=== PATIENT | male | born 1975 | race Caucasian/White ===

== ENCOUNTER 2017-02-01 06:10 | Inpatient (IN) | payer BC ==
[2017-01-29 16:43] LABS: BASOPHILS 0.7 %; BASOPHILS ABSOLUTE 0.05 10/3/uL (0.0-0.16); EOSINOPHILS 4.6 %; EOSINOPHILS ABSOLUTE 0.31 10/3/uL (0.0-0.53); HEMATOCRIT 39.6 % (40.0-51.0); HEMOGLOBIN 14.3 g/dL (13.6-17.8); IMMATURE GRANULOCYTES 0.3 %; IMMATURE GRANULOCYTES ABSOLUTE 0.02 10/3/uL (0.0-0.11); LYMPHOCYTES 22.4 %; MEAN CORPUS HGB CONC 36.1 g/dL (32.0-36.0); MEAN CORPUSCULAR HEMOGLOB 30.6 pg (26.0-34.0); MEAN CORPUSCULAR VOLUME 84.8 fL (80-100); MEAN PLATELET VOLUME 9.5 fL (9.2-13.0); MONOCYTES 8.7 %; MONOCYTES ABSOLUTE 0.58 10/3/uL (0.21-1.20); NEUTROPHILS 63.3 %; NEUTROPHILS ABSOLUTE 4.23 10/3/uL (2.02-8.40); PLATELET COUNT 266 10/3/uL (150-400); RBC DISTRIBUTION WIDTH 13.5 % (12.0-16.0); RED CELL COUNT 4.67 10/6/uL (4.7-6.1); WHITE BLOOD CELLS 6.7 10/3/uL (4.5-10.5)
[2017-01-29 16:47] LABS: MANUAL DIFF NO %
[2017-01-29 16:48] LABS: PROTIME (NOT ORD) 13.3 SEC (12.0-14.5)
[2017-01-29 17:05] LABS: % IRON SAT 31 % (20-50); A/G RATIO 1.3 (0.7-1.9); ALBUMIN 4.2 G/DL (3.5-5.0); BUN (BLOOD UREA NITROGEN) 12 MG/DL (6-23); CALCIUM, SERUM 9.2 MG/DL (8.5-10.4); CHLORIDE, SERUM 103 MMOL/L (96-112); CO2 (CARBON DIOXIDE) 30 MMOL/L (24-34); CREATININE 1.09 MG/DL (0.70-1.30); GFR AFRICAN AMERICAN 99 ML/MIN (>=60); GFR NON AFRICAN AMERICAN 85 ML/MIN (>=60); GLOBULIN 3.2 G/DL (2.5-4.1); IRON BINDING CAPACITY 265 MCG/DL (250-450); IRON, SERUM 81 MCG/DL (35-150); POTASSIUM, SERUM 3.8 MMOL/L (3.5-5.3); SGOT(AST) 24 U/L (5-40); SGPT(ALT) 53 U/L (5-65); SODIUM, SERUM 138 MMOL/L (135-148); TOTAL BILIRUBIN 1.3 MG/DL (0-1.2); TOTAL PROTEIN 7.4 G/DL (6.0-8.5)
[2017-01-29 17:07] LABS: ALKALINE PHOSPHATASE 90 U/L (45-117); GLUCOSE, SERUM 115 MG/DL (60-99)
[2017-01-29 17:36] LABS: ASCORBIC ACID (UR NOT ORDER) NEG (NEG); BILIRUBIN, URINE NEGATIVE (NEG); KETONE, URINE NEGATIVE (NEG); LEUKOCYTE ESTERASE(NOT OR NEG (NEG); WBC (NOT ORDERED) (RFLEX) 1 (0-5)
--- NOTE | ~2017-02-01 | DS ---
Discharge Summary [facility] [address] [place]. [address] NAME: VERONA STOLL : 79 STATUS : DIS IN PAT#: [id number] AGE: 41 ADM/REG DATE : 02/01/17 MR#: [id number] REPORT SERV DATE: 02/20/17 DICTATED BY: BOWEN RIGGINS DATE: 02/19/17 REPORT STATUS : Draft TRANSCRIBED BY: ROSSY DATE: 02/19/17 Data Collection from hospitalization DISCHARGE DIAGNOSES: 1. Coronary artery disease. 2. Hypertension. 3. Hyperlipidemia. 4. Tobacco use. 5. Sleep apnea. CONSULTATIONS: Dr. Collin Soria. PROCEDURES: Median sternotomy, extracorporeal circulation, elective coronary artery bypass grafting x4 with ENCINAS to the LAD, free TANGELA to the obtuse marginal #1, reverse greater saphenous vein graft to the diagonal 1, reverse greater saphenous vein graft to the posterior descending artery, transesophageal echocardiogram, endoscopic vein harvest from the right thigh, sternal plating with rigid external fixation using [employer] SternaLock Carlos System, Prevena dressing placement, 02/01/2017. DISCHARGE MEDICATIONS: Zyloprim 300 mg daily, aspirin as instructed, Lipitor 40 mg at bedtime, Plavix 75 mg daily, Vibramycin 100 mg daily, [place] 5/325 one to two tablets every four hours as needed, Imdur 30 mg daily, Lopressor 12.5 mg twice a day, Nitrostat 0.4 mg sublingually as needed, Deltasone 5 mg twice a day, Zantac 150 mg twice a day as needed. CONDITION ON DISCHARGE: Stable. DISPOSITION: The patient was discharged home on a low-cholesterol, low-sodium, cardiac diet with activities as instructed. He would follow up with me 03/06/2017 and will follow up with Dr. Maurice Valiente 02/22/2017. He will follow up at cardiac rehab 03/09/2017. 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 He would notice that when he would climb into his overhead coreas, he would have tightness and burning in the chest which would be relieved with rest. He ultimately underwent a stress test which revealed ischemia, and it was felt he should undergo cardiac catheterization. The cardiac catheterization showed severe three-vessel coronary artery disease. It was felt he would need to undergo coronary artery bypass grafting. He was admitted to the hospital at this time for further evaluation and treatment. Upon admission, he was taken to the operating room where he underwent the above-mentioned procedure. He tolerated this well. There were no complications. Postoperatively, he was seen by Dr. Collin Soria. The patient is a former smoker. He was presently on ventilator support. He was in a sinus rhythm. His lungs were clear. On postop day 1, his white count was 18.4. He had no edema. He remained stable postoperatively. He was up sitting in a chair. His mediastinal chest tube was removed. His drains were in place as well as pacing wires. On the , his incisions looked okay. He did have a bowel movement. He had positive bowel sounds. He continued to progress. Discharge planning was performed. Pacing wires had been removed. He continued to complain of a lot of pain. He was mobilizing Discharge Summary [address] [address] NAME: VERONA STOLL : 79 STATUS : DIS IN PAT#: [id number] AGE: 41 ADM/REG DATE : 02/01/17 MR#: [id number] REPORT SERV DATE: 02/20/17 DICTATED BY: BOWEN RIGGINS DATE: 02/19/17 REPORT STATUS : Draft TRANSCRIBED BY: ROSSY DATE: 02/19/17 independently. Drains were discontinued. His blood pressure was controlled. Discharge planning was performed. He was encouraged to ambulate. On 02/06/2017, he was mobilizing and ambulating independently. His lungs remained clear bilaterally. Discharge instructions were given. Due to his improved and stable condition, he was discharged home with the above stated instructions. Information collected by: Hilary Contreras I submit the above information as my discharge summary. SONIYA/ROSSY Bowen Riggins MD / [id number] CC: Haley Soria M.D.
--- NOTE | ~2017-02-01 | OP ---
Record Of Operation [facility] [address] [place]. [address] NAME: VERONA STOLL : 79 STATUS : ADM IN PAT#: [id number] AGE: 41 ADM/REG DATE : 02/01/17 MR#: [id number] REPORT SERV DATE: 02/01/17 DICTATED BY: BOWEN RIGGINS DATE: 02/01/17 REPORT STATUS : Draft TRANSCRIBED BY: MODL DATE: 02/01/17 DATE OF PROCEDURE: 02/01/2017 PNEUMATIC TUBE OPERATOR: Donell Bravo. ANESTHESIOLOGIST: PREOPERATIVE DIAGNOSES: 1. Stable angina. 2. Three-vessel coronary disease. 3. Tobacco abuse, both smokeless and cigarettes. POSTOPERATIVE DIAGNOSES: 1. Stable angina. 2. Three-vessel coronary disease. 3. Tobacco abuse, both smokeless and cigarettes. OPERATION/PROCEDURE PERFORMED: 1. Median sternotomy. 2. Extracorporeal circulation. 3. Elective coronary artery bypass grafting x4, ENCINAS to left anterior descending, free TANGELA to obtuse marginal #1, reverse greater saphenous vein graft to D1, reverse greater saphenous vein graft to posterior descending artery. 4. Transesophageal echo. 5. Endoscopic vein harvest, right thigh. 6. Sternal plating with rigid external fixation using [employer] SternaLoEarth Class Mail Carlos system. 7. Prevena dressing placement. COMPLICATIONS: None. TUBES AND DRAINS: A 24-Japanese Ellis x2 to the pleural spaces. Mediastinal 32-Japanese chest tube. Atrial and ventricular wires. POSTOPERATIVE CONDITION: To CVICU. DETAILS OF CARDIOPULMONARY BYPASS: Cross-clamp was 75 minutes. Total cardiopulmonary bypass time 91 minutes. INTRAOPERATIVE FINDINGS: Transesophageal echo showed normal function. No AI, no , no MR. Post bypass was preserved function. In general, there is excellent conduit, excellent targets, except for the PDA which was somewhat small, and good ventricle. DETAILS OF CARDIOPULMONARY BYPASS GRAFTIN. Left internal mammary artery, left anterior descending, this is 1.7 mm target. 2. Reverse greater saphenous vein graft to D1, this is 1.75 mm target. 3. Reverse greater saphenous vein graft to posterior descending artery, this is a 1.5 mm Record Of Operation [facility] [address] [place]. [address] NAME: VERONA STOLL : 79 STATUS : ADM IN PAT#: [id number] AGE: 41 ADM/REG DATE : 02/01/17 MR#: [id number] REPORT SERV DATE: 02/01/17 DICTATED BY: BOWEN RIGGINS DATE: 02/01/17 REPORT STATUS : Draft TRANSCRIBED BY: ROSSY DATE: 02/01/17 target. 4. Free TANGELA, aorta to obtuse marginal #1, this is a 1.75 mm target. There was excellent Doppler signals both pre and post bypass in all grafts. DETAILS OF STERNAL PLATING: Sternum was reapproximated using stainless steel sternal wires, some of these were double wires, between the wires in the manubrium and one 100-degree L- plate was placed with four 14 mm screws. There were 2 X plates placed on the body of the sternum between the wires. Eight 12 mm screws were used for the lower plate and eight 14 mm screws were used for the upper plate. 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 He would notice that when he climbed into his overhead coreas, he would have tightness and burning in his chest which would be relieved with rest. He ultimately underwent a stress test, which revealed ischemia and was referred for heart catheterization. Heart catheterization showed severe three-vessel coronary disease. The risks, benefits, and alternatives were discussed with the patient, including but not limited to, bleeding, infection, stroke, , heart attack, need for future operations. All questions were answered. His STS risk score was calculated and discussed with the patient. Total complication risk less than 12% was discussed with the patient and total mortality rate less than 2% was discussed with the patient. All questions were answered. DETAILS OF PROCEDURE: The patient was brought to the operating room and placed supine on the operating room table. After satisfactory induction of general endotracheal anesthesia, he was prepped and draped in usual sterile fashion. Working simultaneously, endoscopic vein harvest was performed while median sternotomy was performed. Skin and subcutaneous tissues were divided. Sternum was divided in the midline. Rultract retractor was placed. Internal mammary artery on the left was harvested in a pedicle fashion from its takeoff under the subclavian vein to the bifurcation of the diaphragm. Following this, it was infiltrated with papaverine. The internal mammary artery on the right was then harvested as a free graft from its takeoff under the subclavian vein to the bifurcation of the diaphragm. Systemic heparinization was achieved. The TANGELA was clipped at both ends and divided and passed to the gi technician. Hemostasis was obtained. A 24-Japanese Ellis was placed in the left and right pleural space. The left TANGELA was taken down. Rultract retractor was removed. Sternal retractor was placed. Thymic tissue was opened in the midline. Pericardium was opened in the midline. Ascending aortic cannulation was achieved. Dual stage venous cannula was placed in the right atrial appendage. Antegrade root vent cardioplegia tack was placed and targets were inspected. Conduit was prepared for bypass. Cardiopulmonary bypass was initiated after documentation of an adequate ACT. Cross-clamp was brought up after inspecting the targets. Heart was arrested with cold antegrade cardioplegia, switching to cold antegrade cardioplegia every 15 to 20 minutes throughout the remainder of the cross-clamp. The grafts were performed as mentioned in the findings. All distal anastomoses were performed with 8-0 Surgipro. The proximal anastomoses were performed. The veins were cut to length, spatulated. Proximal aortotomies were performed with a 5.2 mm punch and running continuous anastomoses were performed with 6-0 Prolene. Vein graft markers were placed. The free TANGELA was cut to length, spatulated. Proximal aortotomy was performed and enlarged with a 4 mm punch. Proximal anastomosis was performed Record Of Operation [address] [place]. [address] NAME: VERONA STOLL : 79 STATUS : ADM IN [facility]#: [id number] AGE: 41 ADM/REG DATE : 02/01/17 MR#: [id number] REPORT SERV DATE: 02/01/17 DICTATED BY: BOWEN RIGGINS DATE: 02/01/17 REPORT STATUS : Draft TRANSCRIBED BY: MODL DATE: 02/01/17 with 7-0 Prolene. Vein graft marker was placed. The left internal mammary artery was brought down through a wide V in the pericardium, anastomosed to more distal portion of the LAD as he had significant disease throughout his LAD. After completing the graft, the bulldog was removed. There was excellent flow both pre and post anastomosis and then the graft pedicle was attached to the heart in two places using 6-0 Prolene. Vein grafts were de-aired and the cross-clamp was removed. Atrial and ventricular pacing wires were placed. The patient was able to be weaned from cardiopulmonary bypass. Protamine was administered. Hemostasis was obtained. The pericardium was loosely reapproximated using 2-0 silk over the right ventricle and the aorta. Atrial and ventricular pacing wires were placed and exteriorized. After adequate hemostasis, the sternum was then closed. The sternum was closed over a 32-Japanese chest tube. Stainless steel sternal wires were used to close the sternum, some of these were double wires. Pectoral flaps were raised to the edge of the sternum and sternal plating was performed with one 100-degree plate in the manubrium and two X plates in the body of the sternum with a combination of 12 and 14 mm screws as mentioned above. Clavipectoral fascia was reapproximated using running #1 StrataFix. Subcutaneous tissues closed using continuation of the StrataFix, and the skin and subcutaneous tissues were closed with 2-0 Quill. Prevena dressing was placed. The patient was transferred to CVICU in critical, stable condition. WMC/MODL Bowen Riggins MD / [id number] CC: MD Maurice Polanco M.D.
[~2017-02-01 06:10] MED LIST: ASAB PO; IMDUR30 PO; IVVIBRA; LOP25 PO; NITROSTAT0.4 MG SL; Z300 PO; ZANTAC150 MG PO
[2017-02-01 13:33] LABS: BE (BASE EXCESS) -3.9 MEQ/L (0 +/- 2.5); CARBOXYHEMOGLOBIN 0.3 % (0-3); HCO3 (ACTUAL BICARBONATE) 21.3 MEQ/L (23-27); HEMOBLOGIN CONTENT 13.4 G/DL (14-18); INSTRUMENT SERIAL # 11843; METHEMOGLOBIN 0.6 % (0-3); O2 CONTENT 18.9 VOL% (18-24); PCO2 (CO2 TENSION) 39 MMHG (35-45); PO2 (O2 TENSION) 220 MMHG (79-93); SAMPLE Arterial; pH 7.35 (7.37-7.43)
[2017-02-01 13:34] LABS: MODE SIMV; OPERATOR ID 35188; TIDAL VOLUME 700 ML
[2017-02-01 13:56] LABS: BASOPHILS 0.2 %; BASOPHILS ABSOLUTE 0.03 10/3/uL (0.0-0.16); EOSINOPHILS 0.1 %; EOSINOPHILS ABSOLUTE 0.02 10/3/uL (0.0-0.53); HEMOGLOBIN 12.4 g/dL (13.6-17.8); IMMATURE GRANULOCYTES 0.4 %; IMMATURE GRANULOCYTES ABSOLUTE 0.06 10/3/uL (0.0-0.11); LYMPHOCYTES ABSOLUTE 0.66 10/3/uL (0.67-4.30); MEAN CORPUS HGB CONC 35.9 g/dL (32.0-36.0); MEAN CORPUSCULAR HEMOGLOB 30.6 pg (26.0-34.0); MEAN CORPUSCULAR VOLUME 85.2 fL (80-100); MEAN PLATELET VOLUME 9.3 fL (9.2-13.0); MONOCYTES 3.1 %; MONOCYTES ABSOLUTE 0.51 10/3/uL (0.21-1.20); NEUTROPHILS 92.2 %; NEUTROPHILS ABSOLUTE 15.34 10/3/uL (2.02-8.40); PLATELET COUNT 192 10/3/uL (150-400); RBC DISTRIBUTION WIDTH 13.4 % (12.0-16.0); RED CELL COUNT 4.05 10/6/uL (4.7-6.1)
[2017-02-01 13:57] LABS: HEMATOCRIT 34.5 % (40.0-51.0); MANUAL DIFF NO %; WHITE BLOOD CELLS 16.6 10/3/uL (4.5-10.5)
[2017-02-01 14:08] LABS: BUN (BLOOD UREA NITROGEN) 14 MG/DL (6-23); CALCIUM, SERUM 9.5 MG/DL (8.5-10.4); CHLORIDE, SERUM 110 MMOL/L (96-112); CREATININE 1.14 MG/DL (0.70-1.30); GFR AFRICAN AMERICAN 93 ML/MIN (>=60); GFR NON AFRICAN AMERICAN 81 ML/MIN (>=60); GLUCOSE, SERUM 114 MG/DL (60-99); INTERNATIONAL NORMAL RATI 1.3 UNITS (-); PARTIAL THROMBO TIME 28.7 SEC (22.5-37.2); SODIUM, SERUM 141 MMOL/L (135-148)
[2017-02-01 14:09] LABS: CO2 (CARBON DIOXIDE) 24 MMOL/L (24-34); FIBRINOGEN 207 MG/DL (230-462)
[2017-02-01 14:15] LABS: PROTIME (NOT ORD) 16.1 SEC (12.0-14.5)
[2017-02-01 18:47] LABS: BE (BASE EXCESS) -4.2 MEQ/L (0 +/- 2.5); CARBOXYHEMOGLOBIN 0.7 % (0-3); HCO3 (ACTUAL BICARBONATE) 23.1 MEQ/L (23-27); HEMOBLOGIN CONTENT 15.1 G/DL (14-18); INSTRUMENT SERIAL # 11843; METHEMOGLOBIN 0.4 % (0-3); MODE SIMV; O2 CONTENT 20.1 VOL% (18-24); OPERATOR ID 35188; PCO2 (CO2 TENSION) 51 MMHG (35-45); PO2 (O2 TENSION) 90 MMHG (79-93); SAMPLE Arterial; TIDAL VOLUME 700 ML; pH 7.28 (7.37-7.43)
[2017-02-01 19:27] LABS: HEMOGLOBIN 14.1 g/dL (13.6-17.8)
[2017-02-01 19:37] LABS: POTASSIUM, SERUM 5.7 MMOL/L (3.5-5.3)
[2017-02-01 22:45] LABS: BE (BASE EXCESS) -4.2 MEQ/L (0 +/- 2.5); CARBOXYHEMOGLOBIN 0.7 % (0-3); HCO3 (ACTUAL BICARBONATE) 23.1 MEQ/L (23-27); INSTRUMENT SERIAL # 11843; PCO2 (CO2 TENSION) 51 MMHG (35-45); PO2 (O2 TENSION) 90 MMHG (79-93); pH 7.28 (7.37-7.43)
[2017-02-01 22:46] LABS: HEMOBLOGIN CONTENT 15.1 G/DL (14-18); METHEMOGLOBIN 0.4 % (0-3); O2 CONTENT 20.1 VOL% (18-24); OPERATOR ID 35188; SAMPLE Arterial; TIDAL VOLUME 700 ML
[2017-02-02 03:32] LABS: BASOPHILS 0 %; EOSINOPHILS 0 %; HEMATOCRIT 36.3 % (40.0-51.0); HEMOGLOBIN 13.1 g/dL (13.6-17.8); IMMATURE GRANULOCYTES 0.3 %; IMMATURE GRANULOCYTES ABSOLUTE 0.05 10/3/uL (0.0-0.11); LYMPHOCYTES 4.8 %; LYMPHOCYTES ABSOLUTE 0.88 10/3/uL (0.67-4.30); MEAN CORPUS HGB CONC 36.1 g/dL (32.0-36.0); MEAN CORPUSCULAR VOLUME 85.8 fL (80-100); MEAN PLATELET VOLUME 9.6 fL (9.2-13.0); MONOCYTES 5.3 %; MONOCYTES ABSOLUTE 0.97 10/3/uL (0.21-1.20); NEUTROPHILS 89.6 %; NEUTROPHILS ABSOLUTE 16.54 10/3/uL (2.02-8.40); PLATELET COUNT 244 10/3/uL (150-400); RBC DISTRIBUTION WIDTH 13.7 % (12.0-16.0); RED CELL COUNT 4.23 10/6/uL (4.7-6.1); WHITE BLOOD CELLS 18.4 10/3/uL (4.5-10.5)
[2017-02-02 03:35] LABS: MANUAL DIFF NO %
[2017-02-02 03:45] LABS: BUN (BLOOD UREA NITROGEN) 15 MG/DL (6-23); CALCIUM, SERUM 8.6 MG/DL (8.5-10.4); CHLORIDE, SERUM 106 MMOL/L (96-112); CO2 (CARBON DIOXIDE) 27 MMOL/L (24-34); CREATININE 0.83 MG/DL (0.70-1.30); GFR AFRICAN AMERICAN 128 ML/MIN (>=60); GFR NON AFRICAN AMERICAN 111 ML/MIN (>=60); SODIUM, SERUM 139 MMOL/L (135-148)
[2017-02-02 03:46] LABS: GLUCOSE, SERUM 99 MG/DL (60-99); POTASSIUM, SERUM 4.4 MMOL/L (3.5-5.3)
[2017-02-02 16:12] LABS: HEMATOCRIT 39.4 % (40.0-51.0); HEMOGLOBIN 13.6 g/dL (13.6-17.8)
[2017-02-03 04:48] LABS: BASOPHILS 0.1 %; BASOPHILS ABSOLUTE 0.02 10/3/uL (0.0-0.16); EOSINOPHILS 0 %; HEMOGLOBIN 11.9 g/dL (13.6-17.8); IMMATURE GRANULOCYTES 0.4 %; IMMATURE GRANULOCYTES ABSOLUTE 0.08 10/3/uL (0.0-0.11); LYMPHOCYTES 7.7 %; LYMPHOCYTES ABSOLUTE 1.57 10/3/uL (0.67-4.30); MEAN CORPUS HGB CONC 35.3 g/dL (32.0-36.0); MEAN CORPUSCULAR HEMOGLOB 30.6 pg (26.0-34.0); MEAN CORPUSCULAR VOLUME 86.6 fL (80-100); MEAN PLATELET VOLUME 9.4 fL (9.2-13.0); MONOCYTES 11.1 %; MONOCYTES ABSOLUTE 2.27 10/3/uL (0.21-1.20); NEUTROPHILS 80.7 %; NEUTROPHILS ABSOLUTE 16.56 10/3/uL (2.02-8.40); PLATELET COUNT 233 10/3/uL (150-400); RBC DISTRIBUTION WIDTH 14.1 % (12.0-16.0); RED CELL COUNT 3.89 10/6/uL (4.7-6.1); WHITE BLOOD CELLS 20.5 10/3/uL (4.5-10.5)
[2017-02-03 04:49] LABS: HEMATOCRIT 33.7 % (40.0-51.0); MANUAL DIFF NO %
[2017-02-03 04:59] LABS: BUN (BLOOD UREA NITROGEN) 16 MG/DL (6-23); CALCIUM, SERUM 8.8 MG/DL (8.5-10.4); CO2 (CARBON DIOXIDE) 30 MMOL/L (24-34); GFR AFRICAN AMERICAN 97 ML/MIN (>=60); GFR NON AFRICAN AMERICAN 84 ML/MIN (>=60); POTASSIUM, SERUM 4.9 MMOL/L (3.5-5.3)
[2017-02-03 05:00] LABS: CHLORIDE, SERUM 93 MMOL/L (96-112); GLUCOSE, SERUM 121 MG/DL (60-99); SODIUM, SERUM 128 MMOL/L (135-148)
[2017-02-04 05:40] LABS: BASOPHILS 0.1 %; BASOPHILS ABSOLUTE 0.01 10/3/uL (0.0-0.16); EOSINOPHILS 0.1 %; EOSINOPHILS ABSOLUTE 0.01 10/3/uL (0.0-0.53); HEMOGLOBIN 10.9 g/dL (13.6-17.8); IMMATURE GRANULOCYTES 0.3 %; IMMATURE GRANULOCYTES ABSOLUTE 0.05 10/3/uL (0.0-0.11); LYMPHOCYTES 6.7 %; LYMPHOCYTES ABSOLUTE 0.98 10/3/uL (0.67-4.30); MEAN CORPUS HGB CONC 36.5 g/dL (32.0-36.0); MEAN CORPUSCULAR HEMOGLOB 31.5 pg (26.0-34.0); MEAN CORPUSCULAR VOLUME 86.4 fL (80-100); MEAN PLATELET VOLUME 9.2 fL (9.2-13.0); MONOCYTES 10.5 %; MONOCYTES ABSOLUTE 1.53 10/3/uL (0.21-1.20); NEUTROPHILS 82.3 %; NEUTROPHILS ABSOLUTE 12.02 10/3/uL (2.02-8.40); PLATELET COUNT 211 10/3/uL (150-400); RBC DISTRIBUTION WIDTH 13.8 % (12.0-16.0); RED CELL COUNT 3.46 10/6/uL (4.7-6.1); WHITE BLOOD CELLS 14.6 10/3/uL (4.5-10.5)
[2017-02-04 05:44] LABS: HEMATOCRIT 29.9 % (40.0-51.0); MANUAL DIFF NO %
[2017-02-04 05:52] LABS: BUN (BLOOD UREA NITROGEN) 17 MG/DL (6-23); CALCIUM, SERUM 8.6 MG/DL (8.5-10.4); CHLORIDE, SERUM 93 MMOL/L (96-112); CO2 (CARBON DIOXIDE) 30 MMOL/L (24-34); GFR AFRICAN AMERICAN 130 ML/MIN (>=60); GFR NON AFRICAN AMERICAN 113 ML/MIN (>=60); GLUCOSE, SERUM 114 MG/DL (60-99); SODIUM, SERUM 128 MMOL/L (135-148)
[2017-02-05 05:49] LABS: BASOPHILS 0.1 %; BASOPHILS ABSOLUTE 0.01 10/3/uL (0.0-0.16); EOSINOPHILS ABSOLUTE 0.09 10/3/uL (0.0-0.53); HEMATOCRIT 30.8 % (40.0-51.0); HEMOGLOBIN 11.2 g/dL (13.6-17.8); IMMATURE GRANULOCYTES 0.2 %; IMMATURE GRANULOCYTES ABSOLUTE 0.02 10/3/uL (0.0-0.11); LYMPHOCYTES 8.5 %; LYMPHOCYTES ABSOLUTE 0.74 10/3/uL (0.67-4.30); MEAN CORPUS HGB CONC 36.4 g/dL (32.0-36.0); MEAN CORPUSCULAR HEMOGLOB 31.6 pg (26.0-34.0); MEAN PLATELET VOLUME 9.3 fL (9.2-13.0); MONOCYTES 15.4 %; MONOCYTES ABSOLUTE 1.33 10/3/uL (0.21-1.20); NEUTROPHILS 74.8 %; NEUTROPHILS ABSOLUTE 6.47 10/3/uL (2.02-8.40); PLATELET COUNT 274 10/3/uL (150-400); RBC DISTRIBUTION WIDTH 13.4 % (12.0-16.0); RED CELL COUNT 3.54 10/6/uL (4.7-6.1)
[2017-02-05 05:50] LABS: BUN (BLOOD UREA NITROGEN) 18 MG/DL (6-23); CALCIUM, SERUM 8.6 MG/DL (8.5-10.4); CHLORIDE, SERUM 92 MMOL/L (96-112); CO2 (CARBON DIOXIDE) 32 MMOL/L (24-34); CREATININE 0.75 MG/DL (0.70-1.30); GFR AFRICAN AMERICAN 134 ML/MIN (>=60); GFR NON AFRICAN AMERICAN 116 ML/MIN (>=60); GLUCOSE, SERUM 96 MG/DL (60-99); POTASSIUM, SERUM 3.8 MMOL/L (3.5-5.3); SODIUM, SERUM 129 MMOL/L (135-148)
[2017-02-05 05:51] LABS: MANUAL DIFF NO %; WHITE BLOOD CELLS 8.7 10/3/uL (4.5-10.5)
[2017-02-06] MEDS ORDERED: NORCO1 TA1 PO (09:35)
[2017-02-06] MEDS ORDERED: LIPITOR40 PO (09:36)
[2017-02-06] MEDS ORDERED: P5 PO (09:36)
[2017-02-06] MEDS ORDERED: PLAVIX PO (09:37)
== END 2017-02-06 12:51 | disposition home or self-care (01) | DRG 236 ==
LOC: SDC/OF 06:10 → CVICU 12:29 → 5NO 02-02 14:30
PROVIDERS: Thoracic Surgery (Cardiothoracic Vascular Surgery)
DX: I25.119 Atherosclerotic heart disease of native coronary artery with unspecified angina pectoris (principal); I10 Essential (primary) hypertension; F17.210 Nicotine dependence, cigarettes, uncomplicated
CPT/HCPCS: 36415; 71010; 71020; 80048; 80053; 81001; 82330; 82803; 82805; 82947; 82962; 83036; 83540; 83550; 83735; 84132; 84295; 85014; 85018; 85025; 85347; 85384; 85610; 85730; 86850; 86900; 86901; 86920; 87641; 93005; 93312; 93320; 93325; 94002; 94640; 94660; 94770; A9270-GY; C1713; C1751; C1769; C1894; J0690; J1644; J2150; J2250; J2370; J2405; J2440; J2765; J2930; J3010; J3370; J3475; J3480; P9045; P9047